=== PATIENT | female | born 1960 | race Caucasian/White ===

== ENCOUNTER 2024-11-05 13:00 | Emergency (ER) | payer MEDICAID, MEDICARE ==
[2024-11-05 13:22] LABS: BASOPHILS ABSOLUTE AUTO 0.05 K/uL (0.02-0.10); BASOPHILS PERCENT AUTO 0.4 % (0.0-0.5); EOSINOPHILS ABSOLUTE AUTO 0.12 K/uL (0.04-0.40); EOSINOPHILS PERCENT AUTO 0.8 % (1.0-5.0); LYMPHOCYTES ABSOLUTE AUTO 4.76 K/uL (1.50-4.00); LYMPHOCYTES PERCENT AUTO 33.4 % (20.0-40.0); MEAN PLATELET VOLUME 9.2 fL (6.0-10.0); MONOCYTES ABSOLUTE AUTO 0.87 K/uL (0.20-0.80); MONOCYTES PERCENT AUTO 6.1 % (3.0-10.0); NEUTROPHILS ABSOLUTE AUTO 8.44 K/uL (2.00-7.50); NEUTROPHILS PERCENT AUTO 59.3 % (45.0-70.0); PLATELET COUNT,PLT 437 K/uL (150-500); RED BLOOD CELL COUNT 3.86 M/uL (3.80-5.80); RED CELL DISTRIBUTION WIDTH 13.0 % (11.0-16.0); WHITE BLOOD CELL COUNT,WBC 14.2 K/uL (4.0-11.0)
[2024-11-05] MEDS: Heparin Sodium 5,000 Units/ML Vial IVPUSH ONE ×2 (13:24→13:26)
[2024-11-05] MEDS ORDERED: Sodium Chloride 0.9% 10 ML Syringe FLUSH PRN (13:26)
[2024-11-05] MEDS: fentaNYL 100 MCG/2 ML SDV IVPUSH ONE (13:30)
[2024-11-05] MEDS: Ondansetron 4 MG/2 ML SDV IVPUSH ONE (13:38)
[2024-11-05 13:46] LABS: A/G RATIO 1.1 (0.8-2.0); ALANINE AMINOTRANSFERASE,ALT 9.0 U/L (12-78); ASPARTATE AMNIOTRANSFERASE,AST 6.0 U/L (15-37); BILIRUBIN TOTAL 0.3 mg/dL (0.0-1.0); BLOOD UREA NITROGEN,BUN 13.0 mg/dL (8-26); CARBON DIOXIDE,CO2 16.2 mmol/L (21.0-32.0); CHLORIDE,CL 105.0 mmol/L (98-107); CREATININE 0.94 mg/dL (0.55-1.02); EST CRCL DRUG DOSING (CG) 52.21 mL/min; ESTIMATED GFR 68.0 mL/min (>60); GLUCOSE RANDOM 121.0 mg/dL (74-100); PROTEIN TOTAL,TP 5.0 g/dL (6.4-8.2); SODIUM,NA 139.0 mmol/L (136-145)
[2024-11-05] MEDS: Ondansetron 4 MG/2 ML SDV ONE (13:47)
[2024-11-05 13:48] LABS: POTASSIUM,K 2.3 mmol/L (3.5-5.1); TROPONIN I HIGH SENSITIVITY 15.1 pg/ml (<=60.4)
[2024-11-05 14:02] LABS: INR 1.0 (1.0-3.5); PTT,PARTIAL THROMBOPLSTIN TIME 21.0 SECONDS (24.4-33.2)
[2024-11-05] MEDS: Magnesium Sulfate 2 GM/50 mL 2 GM in Premix Bag 1 BAG IV ONE (14:06)
[2024-11-05] MEDS: Magnesium Sulfate 2 GM/50 mL 2 GM in Premix Bag 1 BAG IV SCH (14:07)
[2024-11-05] MEDS: Potassium Chloride 20 MEQ Tab.ER PO ONE (14:07)
== END 2024-11-05 14:38 ==
LOC: LB.ED 13:00
DX: I21.3 ST elevation (STEMI) myocardial infarction of unspecified site (principal); Z88.8 Allergy status to other drugs, medicaments and biological substances; Z79.899 Other long term (current) drug therapy
CPT/HCPCS: 36415; 71045; 80053; 83735; 84484; 85025; 85379; 85610; 85730; 92977; 93005; 93010; 96365; 96368; 96375; 99285; 99285-25; A0425; A0428; A0429; A9270-GY; J1644; J2405; J3010; J3101; J3475; J3480; J7030